=== PATIENT | male | born 1955 | race Caucasian/White ===

== ENCOUNTER 2020-05-10 16:07 | Emergency (ER) | payer MEDICARE, OTHER ==
[2020-05-10] MEDS ORDERED: ACETAMINOPHEN 325 MG TABLET PO ONE ×3 (16:14→21:30)
--- NOTE | 2020-05-10 17:55 | ER Document Report ---
ED Respiratory Problem - General Chief Complaint: Flu Symptoms Stated Complaint: BODY ACHES Time Seen by Provider: 05/10/20 17:35 Mode of Arrival: Ambulatory Information source: Patient Notes: 65-year-old male who denies any other medical conditions presents emergency room complaining of diarrhea, chills, subjective fever, with nausea and vomiting that started yesterday.. Patient states he was tested positive for Covid on May 02 after having a positive exposure by another family member. Patient states at that time he was asymptomatic. States he did not develop any Covid type symp toms until yesterday. States he has been taken Tylenol and Delsym with minimal relief. Last dose of Tylenol at 10 AM this morning. TRAVEL OUTSIDE OF THE [place] IN LAST 30 DAYS: No - Related Data Allergies/Adverse Reactions: latex Allergy (Verified 05/10/20 16:30) Sulfa (Sulfonamide Antibiotics) Allergy (Verified 05/10/20 16:30) Past Medical History - General Information source: Patient - Social History Smoking Status: Never Smoker Frequency of alcohol use: Occasional Drug Abuse: None Family History: Reviewed & Not Pertinent Patient has homicidal ideation: No Past Surgical History: Reports: Hx Orthopedic Surgery - back/knee Review of Systems - Review of Systems Constitutional: Chills, Fever EENT: No symptoms reported Cardiovascular: No symptoms reported Respiratory: Cough. denies: Short of breath, Sputum Gastrointestinal: Diarrhea, Nausea, Vomiting. denies: Abdominal pain Musculoskeletal: No symptoms reported Skin: No symptoms reported Hematologic/Lymphatic: No symptoms reported Neurological/Psychological: No symptoms reported -: Yes All other systems reviewed and negative Physical Exam - Vital signs Vitals: Temp Pulse Resp BP Pulse Ox 103.1 F H 103 H 22 H 177/81 H 95 05/10/20 16:10 05/10/20 16:10 05/10/20 16:10 05/10/20 16:10 05/10/20 16:10 - Notes Notes: GENERAL: Mild acute distress, non-toxic appearance. HEAD: Normal with no signs of head trauma. EYES: PERRLA, EOMI, conjunctiva normal, no discharge. EARS: Hearing grossly intact. NOSE: Normal. THROAT: Oropharynx is normal. NECK: Normal range of motion, no tenderness, supple, no lymphadenopathy, No adenopathy, no JVD. CHEST: Diffuse rhonchi noted to the left lower lobe. No rales. CARDIAC: Tachycardic with normal S1 and S2, without murmurs, gallops, or rubs. VASCULAR: No Edema. Peripheral pulses normal and equal in all extremities. ABDOMEN: Normal and soft with no tenderness, no masses or pulsatile masses. No organomegaly. Positive bowel sounds x4. No CVA tenderness noted bilaterally. GASTROINTESTINAL: Bowel sounds normal LYMPATHTIC: No lymphadenopathy noted. MUSCULOSKELETAL: Good range of motion of all major joints. Extremities without clubbing, cyanosis or edema. NEUROLOGICAL: Alert and oriented x 3. No focal sensory or strength deficits. Speech normal. Follows commands appropriately. PSYCHIATRIC: Normal Affect, judgement and mood. SKIN: Normal appearance with no rashes or lesions. Course - Re-evaluation Re-evalutation: 05/10/20 19:47 Patient is afebrile. He is currently asymptomatic. No diarrhea since arrival to the emergency room. He is able to tolerate p.o. fluids. Reviewed all lab and x-ray results with patient. He has no comorbidities requiring admission for his left lower lobe pneumonia. Case was staffed with ED attending Dr. Campbell. Patient with a negative lactic. Vital signs are currently stable. Patient will be given 1 dose of IV Zithromax and will be discharged home on p.o. Zithromax. Patient will also be discharged home with a Zofran pack. Counseled to push fluids, Tylenol and or Motrin as needed for fevers. Patient was given strict return to the emergency room guidelines. Return for any new or worsening symptoms. All questions were answered. Patient verbalized understanding and agrees with plan of care. - Vital Signs Vital signs: Temp Pulse Resp BP Pulse Ox 100.1 F 108 H 20 132/93 H 98 05/10/20 21:15 05/10/20 21:15 05/10/20 21:15 05/10/20 21:15 05/10/20 21:15 - Laboratory Result Diagrams: 05/10/20 18:05 05/10/20 18:05 Laboratory results interpreted by me: 05/10/20 05/10/20 05/10/20 18:05 18:05 18:50 WBC 15.2 H Lymph % (Auto) 6.1 L Absolute Neuts (auto) 13.3 H Seg Neutrophils % 87.5 H Sodium 132.3 L Chloride 96 L Glucose 176 H Urine Protein 100 H Urine Ascorbic Acid 40 H - Diagnostic Test Radiology reviewed: Reports reviewed Discharge - Discharge Clinical Impression: COVID-19 LLL pneumonia Qualifiers: Pneumonia type: due to unspecified organism Qualified Code(s): J18.9 - Pneumonia, unspecified organism Nausea & vomiting Qualifiers: Vomiting type: unspecified Vomiting Intractability: non-intractable Qualified Code(s): R11.2 - Nausea with vomiting, unspecified Diarrhea Qualifiers: Diarrhea type: unspecified type Qualified Code(s): R19.7 - Diarrhea, unspecified Condition: Stable Disposition: HOME, SELF-CARE Instructions: Antinausea Medication ([facility]), Clear Liquid Diet ([facility]), Diarrhea, Nonspecific ([facility]), Pneumonia ([facility]), Vomiting ([facility]) Additional Instructions: Take Zofran as needed for nausea. Clear liquid diet for the next 24 hours. Antibiotics as prescribed. Start your Zithromax tomorrow evening. Continue with Tylenol and or Motrin as needed for fevers. Return to the emergency room for any new or worsening symptoms. Prescriptions: Azithromycin 250 mg PO DAILY 4 Days #4 tablet
--- NOTE | 2020-05-10 18:27 | RADIOLOGY REPORT (SQ) ---
EXAM DESCRIPTION: CHEST SINGLE VIEW IMAGES COMPLETED DATE/TIME: 05/10/2020 6:06 pm REASON FOR STUDY: cough COMPARISON: None. EXAM PARAMETERS: NUMBER OF VIEWS: One view. TECHNIQUE: Single frontal radiographic view of the chest acquired. RADIATION DOSE: NA LIMITATIONS: None. FINDINGS: LUNGS AND PLEURA: Ill-defined opacification in the left lower lung field. MEDIASTINUM AND HILAR STRUCTURES: No masses. Contour normal. HEART AND VASCULAR STRUCTURES: Heart normal in size. Normal vasculature. BONES: No acute findings. HARDWARE: None in the chest. OTHER: No other significant finding. IMPRESSION: Cannot exclude limited left lower lobe pneumonia. TECHNICAL DOCUMENTATION: JOB ID: [id number] 2010 [employer]- All Rights Reserved Reading location - IP/workstation name: [email or web address]
[2020-05-10 18:36] LABS: ABSOLUTE BASOPHILS # (AUTO) 0.1 10^3/uL (0.0-0.2); ABSOLUTE LYMPHOCYTES (AUTO) 0.9 10^3/uL (0.5-4.7); ABSOLUTE MONOCYTES (AUTO) 0.9 10^3/uL (0.1-1.4); ABSOLUTE NEUT (AUTO) 13.3 10^3/uL (1.7-8.2); BASOPHILS % (AUTO) 0.8 % (0-2); HEMATOCRIT 41.2 % (37.9-51.0); HEMOGLOBIN 14.5 g/dL (13.5-17.0); LYMPHOCYTES % (AUTO) 6.1 % (13-45); MEAN CORPUSCULAR HEMOGLOBIN 32.6 pg (27.0-33.4); MEAN CORPUSCULAR HGB CONC 35.1 g/dL (32.0-36.0); MEAN CORPUSCULAR VOLUME 93 fl (80-97); MONOCYTES % (AUTO) 5.6 % (3-13); PLATELET COUNT 243 10^3/uL (150-450); RED BLOOD COUNT 4.43 10^6/uL (4.35-5.55); RED CELL DISTRIBUTION WIDTH 12.5 % (11.5-14.0); SEGMENTED NEUTROPHILS % (AUTO) 87.5 % (42-78); TOTAL CELLS COUNTED % (AUTO) 100 %; WHITE BLOOD COUNT 15.2 10^3/uL (4.0-10.5)
[2020-05-10 18:46] LABS: ALBUMIN 4.4 g/dL (3.5-5.0); ALKALINE PHOSPHATASE 64 U/L (38-126); ANION GAP 9 (5-19); ASPARTATE AMINO TRANSFERASE 48 U/L (17-59); BILIRUBIN,DIRECT 0.1 mg/dL (0.0-0.4); BILIRUBIN,TOTAL 0.7 mg/dL (0.2-1.3); BLOOD UREA NITROGEN 17 mg/dL (7-20); CALCIUM 9.4 mg/dL (8.4-10.2); CARBON DIOXIDE 27 mmol/L (22-30); CHLORIDE 96 mmol/L (98-107); GLUCOSE 176 mg/dL (75-110); POTASSIUM 4.2 mmol/L (3.6-5.0); TOTAL PROTEIN 7.4 g/dL (6.3-8.2)
[2020-05-10] MEDS ORDERED: AZITHROMYCIN INJ 500 MG VIAL IV ONE (18:57)
[2020-05-10] MEDS ORDERED: NORMAL SALINE 1000 ML 1,000 ML IV ONE (19:01)
[2020-05-10 19:17] LABS: APPEARANCE,URINE SLIGHTLY-CLOUDY; BILIRUBIN,URINE NEGATIVE (NEGATIVE); COLOR,URINE YELLOW; GLUCOSE, URINE NEGATIVE (NEGATIVE); KETONES,URINE NEGATIVE (NEGATIVE); LEUKOCYTE ESTERASE,URINE NEGATIVE (NEGATIVE); NITRITE,URINE NEGATIVE (NEGATIVE); PROTEIN,URINE 100 mg/dL (NEGATIVE); URINE SPECIFIC GRAVITY 1.018; UROBILINOGEN,URINE NEGATIVE mg/dL (<2.0)
[2020-05-10] MEDS ORDERED: ONDANSETRON ODT 4 MG TAB (6 TAB/ER DISP) PO PRN (19:51)
[2020-05-10] MEDS ORDERED: ACETAMINOPHEN 325 MG TABLET ONE (21:45)
[2020-05-10 22:48] VITALS: BP 132/93
== END 2020-05-10 22:00 | disposition home or self-care (01) ==
LOC: ER 16:07
DX: U07.1 COVID-19 (principal); J18.9 Pneumonia, unspecified organism; R11.2 Nausea with vomiting, unspecified; R19.7 Diarrhea, unspecified; Z91.040 Latex allergy status; Z88.2 Allergy status to sulfonamides; R50.9 Fever, unspecified; R05 Cough
CPT/HCPCS: 99284; 96365; 36415; 87040; 83605; 85025; 80053; 81001; 71045; A9270 ×2; J0456